=== PATIENT | male | born 1985 | race Caucasian/White ===

== ENCOUNTER 2019-12-27 18:03 | Emergency (ER) | payer SELFPAY ==
[2019-12-27 18:11] VITALS: BP 134/85; PULSE 78; TEMP 99.1; BMI 24.7
--- NOTE | 2019-12-27 18:13 | PDOC ---
Rapid Medical Evaluation Time Seen by Provider: 12/27/19 18:11 Medical Evaluation: Allergies Allergy/AdvReac Type Severity Reaction Status Date / Time No Known Allergies Allergy Verified 12/27/19 18:05 12/27/19 18:11 I have performed a brief in-person examination on this patient. CC: left facial swelling s/p fall over a wall PE: No bony deformity, crepitus, SQ emphysema. Ecchymosis present with swelling over left mandible. Orders: xray Patient will proceed to ED for further evaluation. Discharge Disposition - Diagnosis Left facial swelling - Referrals - Patient Instructions - Post Discharge Activity
--- NOTE | 2019-12-27 18:56 | PDOC ---
History of Present Illness - General Chief Complaint: Injury Stated Complaint: L SIDE FACE SWOLLEN Time Seen by Provider: 12/27/19 18:11 History Source: Patient Exam Limitations: Clinical Condition - History of Present Illness Initial Comments: 12/27/19 18:57 Patient with no significant past medical history present with complaint of left side facial swelling and mild pain status post falling off a wall yesterday hitting the left side of his face on the wall. Patient denies syncopal episode. Patient reporting had no pain yesterday until this morning when he started having some left-sided facial pain and worsening swelling. Patient reported no pain to jaw area and reported able to move jaw without difficulty. Patient has not taken anything for symptoms. Denies any other symptoms Is this a multiple visit Asthma Patient?: No Timing/Duration: 24 hours Past History - Medical History Allergies/Adverse Reactions: Allergies Allergy/AdvReac Type Severity Reaction Status Date / Time No Known Allergies Allergy Verified 12/27/19 18:05 Home Medications: Ambulatory Orders Naproxen 500 mg PO BID PRN #20 tablet 12/27/19 - Psycho-Social/Smoking History Smoking History: Current every day smoker Have you smoked in the past 12 months: Yes Number of Cigarettes Smoked Daily: 0 Information on smoking cessation initiated: Yes - Substance Abuse Hx (Audit-C & DAST Scrn) How often the patient has a drink containing alcohol: Monthly or less Number of drinks the patient has on a typical day: 1 or 2 How often the patient has six or more drinks on one occasion: Never Score: In Men: 4 or > Positive; In Women: 3 or > Positive: 1 Screen Result (Pos requires Nsg. Audit-10AR): Negative In the last yr the pt used illegal drug/Rx for NonMed reason: No Score: Yes response is considered Positive: 0 Screen Result (Positive result requires Nsg. DAST-10): Negative Review of Systems - Review of Systems Able to Perform ROS?: Yes Is the patient limited [place] proficient: No Constitutional: No: Chills, Fever HEENTM: Yes: Symptoms Reported, See HPI, Mouth Swelling, Other (left side facial swelling). No: Eye Pain, Blurred Vision, Tearing, Recent change in vision, Double Vision, Cataracts, Ear Pain, Ocular Prothesis, Ear Discharge, Nose Pain, Nose Congestion, Tinnitus, Nose Bleeding, Hearing Loss, Throat Pain, Throat Swelling, Mouth Pain, Dental Problems, Difficulty Swallowing Respiratory: No: Symptoms reported Cardiac (ROS): No: Symptoms Reported ABD/GI: No: Symptoms Reported, Nausea, Vomiting Integumentary: Yes: Symptoms Reported, See HPI, Other (swelling to left side of face). No: Erythema Neurological: No: Headache, Numbness, Tingling, Weakness All Other Systems: Reviewed and Negative *Physical Exam - Vital Signs Last Vital Signs Temp Pulse Resp BP Pulse Ox 99.1 F 78 18 134/85 100 12/27/19 18:05 12/27/19 18:05 12/27/19 18:05 12/27/19 18:05 12/27/19 18:05 - Physical Exam 12/27/19 19:04 GENERAL: Well developed, well nourished. Awake and alert. No acute distress. HEENT: moderate left-sided swelling over left side of face. No tenderness to bilateral TMJ. Full range of motion of jaw. Normocephalic, atraumatic. PERRLA, EOMI. No conjunctival pallor. Sclera are non-icteric. Moist mucous membranes. Oropharynx is clear. NECK: Supple. Full ROM. PULMONARY: No evidence of respiratory distress. MUSCULOSKELETAL Normal range of motion at all joints. moderate left-sided swelling over left side of face. No tenderness to bilateral TMJ. Full range of motion of jaw. SKIN: Warm and dry. Normal capillary refill. Moderate swelling to left side of skin of left face. No skin erythema or abscess. NEUROLOGICAL: Alert, awake, appropriate. Gait is normal without ataxia. PSYCHIATRIC: Cooperative. Good eye contact. Appropriate mood General Appearance: Yes: Nourished, Appropriately Dressed. No: Apparent Distress Medical Decision Making - Medical Decision Making 12/27/19 19:01 Patient with no significant past medical history present with complaint of left side facial swelling and mild pain status post falling off a wall yesterday hitting the left side of his face on the wall. Patient denies syncopal episode. Patient reporting had no pain yesterday until this morning when he started having some left-sided facial pain and worsening swelling. Patient reported no pain to jaw area and reported able to move jaw without difficulty. Patient has not taken anything for symptoms. Denies any other symptoms Exam significant for moderate left-sided swelling over left side of face. No tenderness to bilateral TMJ. Full range of motion of jaw. X-ray of facial bones shows no acute fracture or dislocation. Patient symptoms likely soft tissue swelling from fall. Patient stable for discharge on naproxen as needed for pain and swelling with advised to do hot compresses with follow-up with oral surgeon/OMFS. Discharge - Discharge Information Problems reviewed: Yes Clinical Impression/Diagnosis: Left facial swelling Condition: Stable Disposition: HOME - Admission No - Additional Discharge Information Prescriptions: Naproxen 500 mg PO BID PRN #20 tablet PRN Reason: face swelling - Follow up/Referral Referrals: Daniel Garcia [Non Staff, Medical] - Bentley Pascal [Staff Physician] - Ravindra Velazquez [Staff Physician] - - Patient Discharge Instructions Additional Instructions: X-ray of your facial bone was normal and shows no fracture. You have swelling is likely caused by soft tissue muscle swelling. Take prescribed medication as prescribed for pain and swelling. Apply heat to face as needed for swelling for the next few days. Follow-up referred specialist if symptoms persist for more than 3 days - Post Discharge Activity
== END 2019-12-27 19:01 | disposition home or self-care (01) ==
LOC: JERFT 18:03
DX: R22.0 Localized swelling, mass and lump, head (principal)
CPT/HCPCS: 70150-TC-FY; 99283-25